=== PATIENT | female | born 2000 | race Caucasian/White ===

== ENCOUNTER 2019-04-19 21:27 | Day surgery (SDC) | payer SELFPAY ==
[2019-04-19 21:27] VITALS: BP 150/84
[2019-04-19] MEDS ORDERED: ACETAMINOPHEN TAB 650MG DOSE (2X325MG) PO PRN (22:00)
[2019-04-19] MEDS ORDERED: MORPHINE 2 MG/ML 1ML VIAL (J2270) IV PRN (22:00)
[2019-04-19] MEDS ORDERED: ONDANSETRON 4MG/2ML VIAL (J2405) IV PRN (22:00)
--- NOTE | 2019-04-19 22:07 | HPEPDOC ---
General Surgery H&P Date of Admission Apr 19, 2019 Attending Physician: ABDI BONILLA MD History and Physical CHIEF COMPLAINT: abdominal pain HISTORY OF PRESENT ILLNESS: Patient transferred from [facility] for acute appendicitis. She presented there at about 3 pm with a 24 history of mid abdominal pain, multiple episodes of nausea and vomiting and this morning the pain radiated to the right lower quadrant area. She denies fevers or chills but she was told that she has a low-grade fever was she was at [facility]. She denies any sick contacts. ALLERGIES: Please see below. HOME MEDICATIONS: Please see below. PAST MEDICAL HISTORY: 1.none PAST SURGICAL HISTORY: 1. none PERSONAL/SOCIAL HISTORY: Denies smoking, alcohol use, or recreational drug use. REVIEW OF SYSTEMS: GENERAL: Her mom reports that she was noted to have fever while she was at [facility] ED. Her symptoms are of 1 day duration. Previously well. HEENT: Denies blurred vision and double vision. Denies ear symptoms. Denies hoarseness. NECK: Denies any neck pain. CARDIOVASCULAR: Denies chest pain and palpitations. MUSCULOSKELETAL: Denies arthralgias, back pain and thrombophlebitis. SKIN: Denies rash. NEUROLOGIC: Denies headache, stroke and transient ischemic attack. PSYCHIATRIC: Denies anxiety and depression. ENDOCRINE: Denies thyroid disease. HEMATOLOGY/ONCOLOGY: Denies any bleeding or clotting disorder. HEART: Denies any chest pains, palpitations, paroxysmal dyspnea, orthopnea. PULMONARY: Denies chronic cough, dyspnea and wheezing. GASTROINTESTINAL: See HPI. GENITOURINARY: Denies dysuria, frequency, hematuria and nocturia. ENDOCRINE: Denies polydipsia, polyphagia, polyuria, heat or cold intolerance. INFECTIOUS: Denies any recent upper respiratory tract infection, UTI, need for use of antibiotics. NUTRITION: Patient reports poor appetite since symptoms started. Last meal was breakfast the day prior PHYSICAL EXAMINATION: VITAL SIGNS: Please see below. GENERAL APPEARANCE: . Patient looks mildly uncomfortable, laying flat on the bed. She is cooperative, slightly anxious in appearance, not in any cardiorespiratory distress. Does not look chronically ill. HEENT: Normocephalic, atraumatic. [place] palpebral conjunctivae. Anicteric sclerae. Lips moist. CHEST: No chest wall abnormalities. Normal respiratory motion/effort. NECK: Supple. No thyromegaly. No lymphadenopathies. LUNGS: Lung sounds are clear to auscultation bilaterally. No wheezing appreciated. HEART: No chest wall abnormalities. Heart rate and rhythm are regular with no murmurs. ABDOMEN: Abdomen is mildly obese, softly distended, tympanitic to percussion. She is tender over the right lower quadrant area with moderate guarding on palpation extending to the right of the suprapubic area EXTREMITIES: Extremities have no deformities. No edema identified. NEUROLOGICAL: Awake, alert, oriented. ANCILLARIES: . LABORATORY DATA: Please see below. WBC 23.9 MICROBIOLOGY: Please see below. IMAGING: CT abdomen and pelvis acute appendicitis IMPRESSION AND PLAN: Acute appendicitis Her symptoms as well as clinical examination consistent with appendicitis. She has a markedly elevated white count at 24,000 which portends for possibility of perforation though the radiology report on her CT chest report some fair amount of inflammation around an enlarged appendix with appendicolith at the base. She was advised for surgery. We plan to perform laparoscopic appendectomy soon as the operating room is available. I discussed with her the risks and benefits of the procedure as well as other options including nonoperative surgery. Appendectomy remains the standard care. She received a dose of Mefoxin at about 6 currently her to her transfer. I'll start her on Unasyn and metronidazole perioperatively and we'll decide the need for escalation of the antibiotics or continuation of the antibiotics depending on the intraoperative findings. Consent has been obtained from patient. Vital Signs Temperature 100.1 Pulse 109 Respiratory rate 19 BP 150/84 Pulse oximetry 100% on room air Home Medications Scheduled Amoxicillin/Potassium Clav (Augmentin 875-125 Tablet) 1 Each Tablet, 1 TAB PO BID Scheduled PRN Acetaminophen (Acetaminophen) 325 Mg Tablet, 650 MG PO Q4HP PRN for MILD PAIN or TEMP > 101 Allergies Coded Allergies: No Known Allergies (Unverified , 04/19/19) A-FIB/CHADSVASC A-FIB History Current/History of A-Fib/PAF?: No Current PO Anticoag Therapy: ABDI Sin MD Apr 19, 2019 22:06
[2019-04-19] MEDS: LR 1,000 ML IV SCH (22:46)
[2019-04-19] MEDS ORDERED: LIDOCAINE 2% INJ 100 MG/5 ML SDV (FOR ANES.) As Ordered ONE (23:20)
[2019-04-19] MEDS ORDERED: ROCURONIUM BROMIDE 50 MG/5 ML VIAL As Ordered ONE (23:20)
[2019-04-19] MEDS ORDERED: propofoL 200 MG/20 ML VIAL As Ordered ONE (23:20)
[2019-04-19] MEDS ORDERED: fentaNYL 100 MCG/2 ML INJECTION (J3010) As Ordered ONE ×2 (23:21→23:55)
[2019-04-19] MEDS ORDERED: MIDAZOLAM INJ 2 MG/2 ML VIAL (J2250) As Ordered ONE (23:21)
[2019-04-19] MEDS ORDERED: dexameTHASONE 4 MG/ML 1ML VIAL (J1100) As Ordered ONE (23:54)
[2019-04-19] MEDS: AMPICILLIN SOD/SULBACTAM SOD 3 GM in D5W MINI-BAG PLUS 100 ML IV SCH (23:54)
[2019-04-20] VITALS (12 sets, daily range): BP systolic 105–133; BP diastolic 54–67
[2019-04-20] MEDS ORDERED: BUPIVACAINE HCL 0.25% 30 ML VIAL As Ordered ONE (00:02)
[2019-04-20] MEDS ORDERED: LIDOCAINE 1% MDV 20ML VIAL As Ordered ONE (00:02)
[2019-04-20] MEDS: metroNIDAZOLE 500 MG in IV 1 EA IV SCH ×4 (00:05→23:30)
[2019-04-20] MEDS ORDERED: KETOROLAC 60 MG/2 ML VIAL (J1885) As Ordered ONE (00:14)
[2019-04-20] MEDS ORDERED: ACETAMINOPHEN 1000MG 100ML IV BTL (OFIRMEV) (J0131 PER 10MG) As Ordered ONE (00:14)
[2019-04-20] MEDS ORDERED: METOCLOPRAMIDE INJ 10MG/2ML VIAL (J2765) As Ordered ONE (00:14)
[2019-04-20] MEDS ORDERED: ONDANSETRON 4MG/2ML VIAL (J2405) As Ordered ONE ×2 (00:15→01:25)
[2019-04-20] MEDS ORDERED: GLYCOPYRROLATE INJ 0.2 MG/ML 2 ML VIAL As Ordered ONE (00:19)
[2019-04-20] MEDS ORDERED: NEOSTIGMINE 10 MG/10 ML VIAL (J2710) As Ordered ONE (00:19)
[2019-04-20] MEDS ORDERED: fentaNYL 100 MCG/2 ML INJECTION (J3010) IV PRN (01:15)
[2019-04-20] MEDS ORDERED: PERCOCET 5MG/325MG TAB PO PRN (01:15)
[2019-04-20] MEDS ORDERED: LR 1,000 ML IV SCH (01:15)
[2019-04-20] MEDS ORDERED: ONDANSETRON 4MG/2ML VIAL (J2405) IV PRN (01:15)
[2019-04-20] MEDS ORDERED: PERCOCET 5MG/325MG TAB As Ordered ONE (01:25)
[2019-04-20] MEDS: AMPICILLIN SOD/SULBACTAM SOD 3 GM in D5W MINI-BAG PLUS 100 ML IV SCH ×4 (05:03→23:31)
[2019-04-20] MEDS: PERCOCET 5MG/325MG TAB PO PRN ×4 (06:28→22:41)
[2019-04-20 07:02] LABS: BASO % 0.1 % (0.0-1.0); HEMATOCRIT 43.3 % (36.0-47.0); HEMOGLOBIN 14.7 g/dl (12.0-15.5); LYMPH # 0.6 10^3/uL (1.5-5.0); LYMPH % 3.1 % (24.0-44.0); MEAN CORPUSCULAR HEMOGLOBIN 29.6 pg (27.0-33.0); MEAN CORPUSCULAR HGB CONC 33.9 g/dl (32.0-36.5); MEAN CORPUSCULAR VOLUME 87.3 fl (80.0-96.0); MONO # 1.3 10^3/uL (0.0-0.8); MONO % 6.8 % (0.0-5.0); NEUTROPHILS # 16.6 10^3/uL (1.5-8.5); NEUTROPHILS % 89.2 % (36.0-66.0); PLATELET COUNT, AUTOMATED 177 10^3/uL (150-450); RED BLOOD COUNT 4.96 10^6/uL (4.00-5.40); WHITE BLOOD COUNT 18.6 10^3/uL (4.0-10.0)
[2019-04-20 07:27] LABS: BLOOD UREA NITROGEN 9 MG/DL (7-18); CALCIUM LEVEL 8.7 MG/DL (8.5-10.1); CARBON DIOXIDE LEVEL 24 MEQ/L (21-32); CHLORIDE LEVEL 105 MEQ/L (98-107); CREATININE FOR GFR 0.69 MG/DL (0.55-1.30); GLUCOSE, FASTING 130 MG/DL (70-100); POTASSIUM SERUM 3.9 MEQ/L (3.5-5.1); SODIUM LEVEL 135 MEQ/L (136-145)
[2019-04-20] MEDS: LR 1,000 ML IV SCH (08:24)
[2019-04-21] VITALS: BP 126/69
[2019-04-21] MEDS: AMPICILLIN SOD/SULBACTAM SOD 3 GM in D5W MINI-BAG PLUS 100 ML IV SCH ×3 (04:31→17:00)
[2019-04-21] MEDS: PERCOCET 5MG/325MG TAB PO PRN ×3 (04:32→17:18)
[2019-04-21 05:00] VITALS: BP 129/70
[2019-04-21 08:00] VITALS: BP 122/71
[2019-04-21 08:09] LABS: BASO % 0.2 % (0.0-1.0); EOS # 0.1 10^3/uL (0.0-0.5); EOS % 0.8 % (0.0-3.0); HEMATOCRIT 41.5 % (36.0-47.0); LYMPH # 1.1 10^3/uL (1.5-5.0); LYMPH % 8.6 % (24.0-44.0); MEAN CORPUSCULAR HEMOGLOBIN 29.7 pg (27.0-33.0); MEAN CORPUSCULAR HGB CONC 33.7 g/dl (32.0-36.5); MEAN CORPUSCULAR VOLUME 88.1 fl (80.0-96.0); MONO # 0.9 10^3/uL (0.0-0.8); MONO % 7.5 % (0.0-5.0); NEUTROPHILS # 10.3 10^3/uL (1.5-8.5); NEUTROPHILS % 82.3 % (36.0-66.0); PLATELET COUNT, AUTOMATED 174 10^3/uL (150-450); RED BLOOD COUNT 4.71 10^6/uL (4.00-5.40); WHITE BLOOD COUNT 12.5 10^3/uL (4.0-10.0)
[2019-04-21] MEDS: metroNIDAZOLE 500 MG in IV 1 EA IV SCH ×2 (08:14→16:00)
[2019-04-21 12:00] VITALS: BP 121/63
[2019-04-21] MEDS ORDERED: AUGM875T28 PO ×2 (15:40→15:49)
[2019-04-21] MEDS ORDERED: ACET1TAB55 PO (15:40)
[2019-04-21 16:00] VITALS: BP 118/68
[2019-04-21] MEDS ORDERED: KETOROLAC 30 MG/ML VIAL (J1885) IV ONE (16:00)
--- NOTE | 2019-04-27 11:38 | ROOPDOC ---
[facility] Report Of Operation Report of Operation DATE OF PROCEDURE: 04/19/19 PREPROCEDURE DIAGNOSES: Acute appendicitis. POSTPROCEDURE DIAGNOSES: Acute appendicitis, locally perforated at the base, no abscess. PROCEDURE: Laparoscopic appendectomy. SURGEON: Rory Egan MD [employer] SPECIALIST: ANESTHESIA: Gen. anesthesia. ESTIMATED BLOOD LOSS: Approximately 10 mL. COMPLICATIONS: None. SPECIMENS: Appendix. PROCEDURE NOTE: Inflamed appendix with an appendicolith at the base and the localized area of necrosis and perforation just above where the appendicolith is located. Proximal to this the base appears healthy. DESCRIPTION OF PROCEDURE: Patient has been given a dose of Unasyn 3 g IV every 6 hours perioperatively while awaiting availability of the operating room. Patient was brought to the operating room, placed supine on the table. Sequential compression device placed for DVT prophylaxis. General endotracheal anesthesia started. The abdomen prepped and draped in usual sterile fashion. After a surgical timeout, we began our surgery Entry into the abdomen done through an incision just above the umbilicus. Veress needle inserted on a controlled fashion. Intra-abdominal placement confirmed with saline drop technique. CO2 insufflation started to a pressure of 15 mmHg. Using the same incision a 5 mm optical port was placed under direct vision of laparoscope. Insertion site was inspected for injury and none was found. He was placed on a Trendelenburg position the right side tilted to about 30 to allow for better visualization of the appendix. A 5 mm port was placed under direct vision at the suprapubic area. The umbilical port was exchanged for an 8 mm port. Another 5 mm port was placed over the left lower quadrant area. Operative findings: The appendix is quite thickened and distended throughout its course. Just about the base of the appendix is a slight bump on the lumen consistent with the presence of an appendicolith. And just on top of this is a localized area of necrosis on the wall anteriorly and perforation. Rest of the appendix appears healthy including where the appendix meets the cecum. The mesoappendix was markedly thickened slightly shortened. There is mostly serous fluid in the pelvis. The appendix was located. The Surrounding bowels retracted away from the appendix. This was grasped to pull the base of the appendix into view. The [place] ppendix was divided using Harmonic scalpel down to the base. The fibrous adhesion, attachments to the lateral wall of the cecum was likewise sharply divided as we followed the course of the retrocecal appendix down to its base. The base still appears distended and thickened. I could get done area of relatively healthy appendix at the junction of the appendix and the cecum beyond the perforation. I used 2 PDS Endoloops to ligate the appendix at its base then divided with a Harmonic Scalpel then the stump was cauterized. Stump appears healthy. Appendix was then delivered into an Endo Catch bag and retrieved through the umbilical port site. After re-insufflation the surgical site was inspected for hemostasis. Surrounding areas of the abdomen including the pelvis and perihepatic area were inspected for fluid collections or signs of injury. I left a 10 flat SHAHZAD drain coursing from the left lower quadrant port site to the right gutter for wound drainage and continued monitoring. The abdomen was deflated. All ports removed. The umbilical fascial defect repaired with 0 Vicryl in a mattress fashion. All skin incisions closed with 4-0 Monocryl in a subcuticular fashion. The drain was secured to the skin with 2-0 silk. Steri-Strips and gauze dressing used for wound coverage. Patient was promptly awake and extubated and brought to recovery room stable. All counts of sponges and instruments verified to be correct. RORY EGAN MD Apr 27, 2019 11:38
== END 2019-04-21 17:45 | disposition home or self-care (01) ==
LOC: M OPCLI4PV 21:27 → M PED 22:11 → M MSPAV 22:23 → M MS4PR 04-20 11:29 → M PED 04-20 21:13 → M OPCLI4PV 04-21 17:45
PROVIDERS: ATTEND Surgery
DX: K35.890 Other acute appendicitis without perforation or gangrene (principal)
CPT/HCPCS: 36415; 44970; 80048; 85025; 87070; 87075; 87076; 87077; 87186; 87205; 88304; 96365; 96366; 96367; 96375; J0131; J1100; J1885; J2250; J2270; J2405; J2710; J2765; J3010